=== PATIENT | female | born 1965 | race Asian ===

== ENCOUNTER 2019-04-05 19:36 | Emergency (ER) | payer OTHER ==
[2019-04-05 20:00] VITALS: BP 131/69
--- NOTE | 2019-04-05 20:14 | UC ---
Skin Complaint HPI - HPI Summary HPI Summary: 53-year-old female comes to complete a rash on her right forearm. She got it when she was working in the garden couple weeks ago. She has been caring for peds gradually been spreading. Initially a topical steroid was helping but then because of other activity she was unable to take care of it and now starting to spread. It does itch no fevers no chills. Drainage is straw- colored no pus drainage. - History of Current Complaint Chief Complaint: UCRash Time Seen by Provider: 04/05/19 19:53 Stated Complaint: RASH Hx Last Menstrual Period: unknown Pain Intensity: 0 - Allergy/Home Medications Allergies/Adverse Reactions: Allergies Allergy/AdvReac Type Severity Reaction Status Date / Time No Known Allergies Allergy Verified 04/05/19 20:05 Home Medications: Home Medications Betamethasone Dipropionate 15 gm TOPICAL DAILY 04/05/19 [History Confirmed 04/05] PMH/Surg Hx/FS Hx/Imm Hx Previously Healthy: Yes - Surgical History Surgical History: Yes Surgery Procedure, Year, and Place: D&C - Family History Known Family History: Positive: Other - Cancer. - Social History Alcohol Use: Occasionally Substance Use Type: None Smoking Status (MU): Never Smoked Tobacco Review of Systems All Other Systems Reviewed And Are Negative: Yes Constitutional: Positive: Negative Skin: Positive: Other - see hpi Eyes: Positive: Negative ENT: Positive: Negative Respiratory: Positive: Negative Cardiovascular: Positive: Negative Gastrointestinal: Positive: Negative Motor: Positive: Negative Neurovascular: Positive: Negative Musculoskeletal: Positive: Negative Neurological: Positive: Negative Psychological: Positive: Negative Is Patient Immunocompromised?: No Physical Exam Triage Information Reviewed: Yes Appearance: Well-Appearing, No Pain Distress, Well-Nourished Vital Signs: Initial Vital Signs Temp 100.0 F 04/05/19 19:54 Pulse 75 04/05/19 19:54 Resp 16 04/05/19 19:54 BP 93/59 04/05/19 19:54 Pulse Ox 99 04/05/19 19:54 Vital Signs Reviewed: Yes Eye Exam: Normal Eyes: Positive: Conjunctiva Clear Neck: Positive: Supple Respiratory: Positive: No respiratory distress Musculoskeletal Exam: Normal Musculoskeletal: Positive: Strength Intact, ROM Intact Neurological Exam: Normal Neurological: Positive: Alert, Muscle Tone Normal Psychological Exam: Normal Psychological: Positive: Age Appropriate Behavior Skin: Positive: Other - right forearm 5cm x 3cm raised erythematous rash with serous drainage. No streaking. Course/Dx - Diagnoses Provider Diagnosis: Poison irasema Discharge - Sign-Out/Discharge Documenting (check all that apply): Patient Departure All imaging exams completed and their final reports reviewed: No Studies - Discharge Plan Condition: Stable Disposition: HOME Prescriptions: Betamethasone Dip 0.05% ON(NF) [Betamethasone Dipr 0.05% OINT(NF)] 1 applic TOPICAL BID #45 gm methylPREDNISolone [Medrol Dosepak 4 MG*] 0 mg PO .SEE YARI INSTRUCTION #1 yari Patient Education Materials: Poison Irasema (ED) Referrals: Teo Cao MD [Primary Care Provider] - Additional Instructions: FOLLOW UP WITH YOUR DOCTOR IF NOT COMPLETELY IMPROVED. GET RECHECKED SOONER IF YOUR CONDITION WORSENS OR ANY QUESTIONS OR CONCERNS. - Billing Disposition and Condition Condition: STABLE Disposition: Home
== END 2019-04-05 20:37 | disposition home or self-care (01) ==
LOC: UCEAST 19:36
DX: L23.7 Allergic contact dermatitis due to plants, except food (principal)
CPT/HCPCS: 99212; G0463